=== PATIENT | male | born 1995 | race Caucasian/White ===

== ENCOUNTER 2016-08-22 21:20 | Emergency (ER) | payer MEDICAID ==
[2016-08-22 22:54] VITALS: BP 136/82
== END 2016-08-22 22:54 | disposition home or self-care (01) ==
LOC: ED 21:20
DX: S93.402A Sprain of unspecified ligament of left ankle, initial encounter (principal); X58.XXXA Exposure to other specified factors, initial encounter; Y93.01 Activity, walking, marching and hiking; Y92.89 Other specified places as the place of occurrence of the external cause; Y99.8 Other external cause status

== ENCOUNTER 2019-01-02 19:53 | Emergency (ER) | payer MEDICAID ==
[~2019-01-02] VITALS: Ht 172.7 cm; Wt 101.2 kg
[2019-01-02 20:22] VITALS: Ht 172.7 cm; Wt 101.2 kg
[2019-01-02 22:33] VITALS: BP 120/80
== END 2019-01-02 22:33 | disposition home or self-care (01) ==
LOC: ED 19:53
DX: S39.012A Strain of muscle, fascia and tendon of lower back, initial encounter (principal); X58.XXXA Exposure to other specified factors, initial encounter; Y93.67 Activity, basketball; Y92.89 Other specified places as the place of occurrence of the external cause; Y99.8 Other external cause status
CPT/HCPCS: J1885

== ENCOUNTER 2019-04-01 11:03 | Emergency (ER) | payer MEDICAID ==
[~2019-04-01] VITALS: Ht 172.7 cm; Wt 99.8 kg
[2019-04-01 11:08] VITALS: Ht 172.7 cm; Wt 99.8 kg
[2019-04-01 11:38] LABS: CALCIUM 8.7 mg/dL (8.5-10.1); CARBON DIOXIDE 27.9 mmol/L (21-32); CHLORIDE SERUM 99 mmol/L (98-107); CREATININE SERUM 1.3 mg/dL (0.7-1.3); GFR1 > 60 mL/min; GLUCOSE SERUM 149 mg/dL (74-106); POTASSIUM SERUM 3.7 mmol/L (3.5-5.1); SODIUM SERUM 134 mmol/L (136-145)
[2019-04-01 11:41] LABS: BASOPHIL % 0.2 % (0-2); PLATELET COUNT 138 x10^3mcL (130-400); RED CELL DISTRIBUTION WIDTH 13.1 % (11.5-14.5)
[2019-04-01 11:43] LABS: ALBUMIN 3.9 g/dL (3.4-5.0); ALKALINE PHOSPHATASE 60 U/L (46-116); ALT/SGPT 47 U/L (16-63); AST/SGOT 22 U/L (15-37); BILIRUBIN TOTAL 0.3 mg/dL (0.20-1.00); TOTAL PROTEIN, SERUM 7.8 g/dL (6.4-8.2)
[2019-04-01 13:13] VITALS: BP 131/75
== END 2019-04-01 13:13 | disposition home or self-care (01) ==
LOC: ED 11:03
DX: J11.1 Influenza due to unidentified influenza virus with other respiratory manifestations (principal)
CPT/HCPCS: 87804; J1885; J7030; Q0092

== ENCOUNTER 2019-06-03 13:36 | Emergency (ER) | payer SELFPAY ==
[~2019-06-03] VITALS: Ht 172.7 cm; Wt 100.7 kg
[2019-06-03 13:42] VITALS: BP 130/80; Ht 172.7 cm; Wt 100.7 kg
== END 2019-06-03 15:20 | disposition home or self-care (01) ==
LOC: ED 13:36
DX: S83.92XA Sprain of unspecified site of left knee, initial encounter (principal); W21.03XA Struck by baseball, initial encounter; Y93.64 Activity, baseball; Y92.320 Baseball field as the place of occurrence of the external cause; Y99.8 Other external cause status